=== PATIENT | female | born 1980 | race Asian ===

== ENCOUNTER 2017-11-10 15:24 | Emergency (ER) | payer OTHER ==
[2017-11-10 15:31] VITALS: BP 108/69
--- NOTE | 2017-11-10 15:41 | EDPHY ---
H & P Smoking Status: Never smoked Time Seen by Provider: 11/10/17 15:41 HPI/ROS: CHIEF COMPLAINT: Dog bite right leg HISTORY OF PRESENT ILLNESS: Dog bite right lateral thigh CHIEF COMPLAINT: 37-year-old immunocompetent female with out-of-date tetanus arrives via private vehicle states that a domesticated dog that was tied up to a tree jumped out and bit her as she was walking by, bit her through her pants. The pain swab punctured. Complaining of erythema to the right middle lateral thigh. She reported this to police already. This occurred shortly prior to arrival. She is able to bear weight and ambulate without difficulty PHYSICAL EXAM (Prior to examination, patient consented to physical exam, hands were washed and my usual and customary physical exam procedures followed) 1) GENERAL: Well-developed, well-nourished, alert and oriented. Appears to be in no acute distress. 2) HEAD: Normocephalic 3) HEENT: sclera anicteric 4) LUNGS: Breathing comfortably. 5) SKIN: On the patient's right lateral mid thigh she has 2 areas of erythema. The most cephalad lesion has barely broken surface of the skin. There are no signs of infection. No erythema. No ecchymosis. She has soft compartments. This is a discrete distance from any articular surface. (Efren Aponte) Constitutional: Initial Vital Signs Temperature (C) 36.4 C 11/10/17 15:28 Heart Rate 67 11/10/17 15:28 Respiratory Rate 16 11/10/17 15:28 Blood Pressure 108/69 11/10/17 15:28 O2 Sat (%) 96 11/10/17 15:28 O2 Delivery Mode Room Air Allergies/Adverse Reactions: No Known Allergies Allergy (Unverified 11/10/17 15:26) Home Medications: Medication Instructions Recorded Amoxicillin/Clavulanate Pot 875 mg PO BID #14 tab 11/10/17 [Augmentin 875 mg tab] Narcotic Pain Med 11/10/17 MDM/Departure - MDM Medications Given: Discontinued Medications Amoxicillin/Clavulanate Potassium (Augmentin 875mg) 875 mg PO EDNOW ONE PRN Reason: Protocol Stop: 11/10/17 15:52 Last Admin: 11/10/17 16:01 Dose: 875 mg Diphtheria/Tetanus/Acell Pertussis (Boostrix) 0.5 ml IM .ONCE ONE Stop: 11/10/17 15:52 Last Admin: 11/10/17 16:01 Dose: 0.5 ml ED Course/Re-evaluation: Doubt traumatic arthrotomy. Patient's tetanus has been updated. Wound cleaned. Started on prophylactic Augmentin. Usual and customary wound precautions instructions provided. She feels comfortable being discharged. 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 I saw this patient independently based on established practice protocols. Care of patient under supervision of secondary supervising physician Dr Haider [facility] The patient was evaluated and managed by the Physician Fingerprinter. My co- signature indicates that I have reviewed this chart and I agree with the findings and plan of care as documented. I am the secondary supervising physician. (Valencia Haider) - Depart Disposition: Home, Routine, Self-Care Clinical Impression: Dog bite of right thigh Qualifiers: Encounter type: initial encounter Qualified Code(s): S71.151A - Open bite, right thigh, initial encounter; W54.0XXA - Bitten by dog, initial encounter; W54.0XXA - Bitten by dog, initial encounter Condition: Good Instructions: Animal Bite (ED) Additional Instructions: Return to the ER if you develop redness, swelling, discharge, warmth to the wound, red streaks going up your leg, or any other symptoms that concern you. Prescriptions: Amoxicillin/Clavulanate Pot [Augmentin 875 mg tab] 875 mg PO BID #14 tab Referrals: Alis Lynne MD [Primary Care Provider] - 1-2 days without fail
[2017-11-10] MEDS ORDERED: AMOXICILLIN/CLAVULANATE POT 875/125 MG TAB PO ONE (15:51)
[2017-11-10] MEDS ORDERED: TDAP ADULT 0.5 ML INJ (BOOSTRIX) IM ONE (15:51)
== END 2017-11-10 16:09 | disposition home or self-care (01) ==
DX: S71.151A Open bite, right thigh, initial encounter (principal); Z23 Encounter for immunization; W54.0XXA Bitten by dog, initial encounter; Y99.8 Other external cause status; Y93.K1 Activity, walking an animal